=== PATIENT | female | born 1940 | race Caucasian/White ===

== ENCOUNTER → 2016-12-15 | Outpatient (CLI) | payer MEDICARE, BC ==
[~2016-12-15] MED LIST: ALDACTONE25 MG PO; ASPIRIN (CHILDR81 MG PO; BACTRIM DS1 TAB PO; BENADRYL25 MG PO; CALCIUM CARBONATE PO; CALCIUM PO; CATAPRES0.1 MG PO; CENTRUM SILVER1 EAC1 PO; CORDARONE,PACE200 MG PO; COZAAR50 MG PO; FAMOTIDINE20 MG PO; FISH OIL1000 MG PO; ICAPS TABLET1 EACH PO; ISMO (MONOKET)20 MG PO; LEVOTHROID (S137 MCG PO; LOPRESSOR25 MG PO; NORCO 5-325 MG1 TAB PO; OSCAL + D500 MG PO; PLAQUENIL200 MG PO; PRADAXA75 MG PO; PRAVACHOL40 MG PO; PROCARDIA XL30 MG PO; ZYRTEC10 MG PO
== END ==
LOC: LGSMG 12:05
DX: I12.9 Hypertensive chronic kidney disease with stage 1 through stage 4 chronic kidney disease, or unspecified chronic kidney disease (principal); N18.3 Chronic kidney disease, stage 3 (moderate)

== ENCOUNTER → 2016-12-16 | Outpatient (CLI) | payer MEDICARE, BC | END | disposition disaster alternative care site (69) | LOC: GRAD 10:38 | DX: N18.4 Chronic kidney disease, stage 4 (severe) (principal) ==

== ENCOUNTER → 2016-12-30 | Outpatient (CLI) | payer MEDICARE, BC | END | disposition disaster alternative care site (69) | LOC: GBCOE 08:37 | DX: Z12.31 Encounter for screening mammogram for malignant neoplasm of breast (principal) | CPT/HCPCS: G0202 ==